=== PATIENT | male | born 1965 | race Caucasian/White ===

== ENCOUNTER 2018-04-30 19:24 | Emergency (ER) | payer MEDICARE, MEDICAID ==
--- NOTE | 2018-04-30 19:44 | Emergency Department Record ---
History of Present Illness - General Chief complaint: Extremity Problem Stated complaint: RT RING FINGER PAIN /BRUISED Time Seen by Provider: 04/30/18 19:38 Source: Patient Mode of Arrival: Wheelchair Limitations: No limitations - History of Present Illness Initial comments: 52 yo male presents to ED for evaluation following injury to the right index finger earlier this afternoon. Patient reports that his finger became pinched between his power wheelchair and a power sliding door. Patient reports mild blood under the nail and pain to the finger tip, denies other injury on examination. MD Complaint: Extremity pain Onset/Timin -: Hour(s) Location: Right Radiation: None Severity scale (1-10): 8 Quality: Crushing Consistency: Constant Improves with: Nothing Worsens with: Nothing Associated Symptoms: Denies other symptoms - Related Data Home Medications Medication Instructions Recorded Confirmed Last Taken No Home Med [NO HOME MEDS] 04/30/18 04/30/18 Unknown Allergies Allergy/AdvReac Type Severity Reaction Status Date / Time No Known Drug Allergies Allergy Verified 04/30/18 19:29 Travel Screening - Travel/Exposure Within Last 30 Days Have you traveled within the last 30 days?: No - Travel/Exposure Within Last Year Have you traveled outside the [place] in the last year?: No - Additonal Travel Details Have you been exposed to anyone with a communicable illness?: No - Travel Symptoms Symptom Screening: None Review of Systems Constitutional: Denies: Chills, Fever, Malaise, Night sweats Eyes: Denies: Eye discharge, Eye pain ENT: Denies: Congestion, Ear pain, Epistaxis Respiratory: Denies: Cough, Dyspnea Cardiovascular: Denies: Chest pain, Dyspnea on exertion Endocrine: Denies: Fatigue, Heat or cold intolerance Gastrointestinal: Denies: Abdominal pain, Nausea, Vomiting Genitourinary: Denies: Testicular pain, Testicular mass Musculoskeletal: Reports: Arthralgia. Denies: Back pain, Gout Skin: Reports: Bruising. Denies: Change in color Neurological: Denies: Abnormal gait, Confusion, Headache, Seizure Psychiatric: Denies: Anxiety Hematological/Lymphatic: Denies: Anemia, Blood Clots Past Medical History - SOCIAL HISTORY Smoking Status: Light tobacco smoker (<10/day) Alcohol Use: None Drug Use: None - RESPIRATORY Hx Respiratory Disorders: No - CARDIOVASCULAR Hx Cardio Disorders: Yes Hx Hypertension: Yes (borderline) Comment:: cholesteremia - NEURO Hx Neuro Disorders: Yes Comment:: closed head injury/left side paralysis - GI Hx GI Disorders: No - Hx Genitourinary Disorders: No - ENDOCRINE Hx Endocrine Disorders: No - MUSCULOSKELETAL Hx Musculoskeletal Disorders: No - PSYCH Hx Psych Problems: Yes Hx Anxiety: Yes Hx Depression: Yes - HEMATOLOGY/ONCOLOGY Hx Hematology/Oncology Disorders: No Family Medical History Any Significant Family History?: No Physical Exam - General General Appearance: Alert, Oriented x3, Cooperative, Mild distress Limitations: No limitations - Head Head exam: Atraumatic, Normocephalic, Normal inspection Head exam detail: negative: Abrasion, Contusion, Lee's sign, General tenderness, Hematoma, Laceration - Eye Eye exam: Normal appearance. negative: Conjunctival injection, Periorbital swelling, Periorbital tenderness, Scleral icterus - ENT Ear exam: negative: Auricular hematoma, Auricular trauma Nasal Exam: negative: Active bleeding, Discharge, Dried blood, Foreign body Mouth exam: negative: Drooling, Laceration, Muffled voice, Tongue elevation - Neck Neck exam: Normal inspection. negative: Meningismus, Tenderness - Respiratory Respiratory exam: Normal lung sounds bilaterally. negative: Rales, Respiratory distress, Rhonchi, Stridor - Cardiovascular Cardiovascular Exam: Regular rate, Normal rhythm, Normal heart sounds - GI/Abdominal GI/Abdominal exam: Soft. negative: Rebound, Rigid, Tenderness - Rectal Rectal exam: Deferred - exam: Deferred - Extremities Extremities exam: Tenderness, Other (TTP over the distal right ring finger, subungal hematoma comprises 25% of the nailbed area, FROM intact (but painful) with flexion/extension intact.). negative: Calf tenderness, Pedal edema - Back Back exam: Denies: CVA tenderness (R), CVA tenderness (L) - Neurological Neurological exam: Alert, Normal gait, Oriented X3 - Psychiatric Psychiatric exam: Normal affect, Normal mood - Skin Skin exam: Normal color. negative: Abrasion Type of lesion: negative: abrasion Course Vital Signs 04/30/18 19:30 Temperature 98.5 F Pulse Rate [ 78 Pulse Ox Probe] Respiratory 24 Rate Blood Pressure 142/97 [Left Arm] Pulse Ox 100 - Reevaluation(s) Reevaluation #1: 04/30/18 21:12 Right ring finger: No definite acute fracture identified Patient was updated on his radiology result, will place in finger splint for comfort. Patient otherwise appears stable for discharge at this time. Disposition Disposition: Discharge Clinical Impression: Finger contusion Qualifiers: Encounter type: initial encounter Finger: ring finger Damage to nail status: without damage Laterality: right Qualified Code(s): S60.041A - Contusion of right ring finger without damage to nail, initial encounter Disposition: Home, Self-Care Condition: (2) Stable Instructions: Subungual Hematoma (ED) Additional Instructions: Return to ED if your symptoms worsen or if you have any concerns. Ibuprofen as directed. Follow-up with your family doctor in 3-5 days as directed. Forms: Patient Portal Access Time of Disposition: 21:13 Quality - Quality Measures Quality Measures: N/A - Blood Pressure Screening Does Patient Have Any of the Following: No Blood Pressure Classification: Hypertensive Reading Systolic Measurement: 142 Diastolic Measurement: 97 Screening for High Blood Pressure: < First Hypertensive BP, F/U Documented > [ G8950] First Hypertensive Follow-up Interventions: Referral to alternative/primary care provider.
[2018-04-30] MEDS ORDERED: IBUPROFEN 600 MG TABLET PO ONE (20:34)
== END 2018-04-30 21:20 | disposition home or self-care (01) ==
LOC: ER 19:24
DX: S60.041A Contusion of right ring finger without damage to nail, initial encounter (principal); W23.1XXA Caught, crushed, jammed, or pinched between stationary objects, initial encounter; F17.210 Nicotine dependence, cigarettes, uncomplicated
CPT/HCPCS: 73140; 99283

== ENCOUNTER 2019-08-19 14:54 | Emergency (ER) | payer MEDICARE, MEDICAID ==
[2019-08-19] MEDS ORDERED: KETOROLAC 30 MG/ML VIAL IM ONE (15:09)
--- NOTE | 2019-08-19 15:26 | Emergency Department Record ---
History of Present Illness - General Chief complaint: Flank Pain Stated complaint: KIDNEY STONES Time Seen by Provider: 08/19/19 14:55 Source: Patient Mode of Arrival: Wheelchair Limitations: No limitations - History of Present Illness Initial comments: The patient is here due to L flank pain for at least a week. He denies any fall, trauma, injury, cough, vomiting, diarrhea or fever. The patient was here 2 weeks ago for similar issues and and a neg UA and a neg abd CT for hydro or ureter stone. He did have a 1 mm stone in the upper pole of the L kidney but no blockage. The patient also states he has had a hx of chronic flank pain off and on for some time. MD Complaint: Other Onset/Timin -: Week(s) Location: Left flank Radiation: None Severity: Mild Consistency: Constant Improves with: None Worsens with: None Reports: Denies other symptoms - Related Data Allergies Allergy/AdvReac Type Severity Reaction Status Date / Time No Known Drug Allergies Allergy Verified 08/19/19 15:05 Travel Screening - Travel/Exposure Within Last 30 Days Have you traveled within the last 30 days?: No Review of Systems Constitutional: Denies: Chills, Fever Eyes: Denies: Eye discharge ENT: Denies: Congestion Respiratory: Denies: Cough, Dyspnea Past Medical History - SOCIAL HISTORY Smoking Status: Light tobacco smoker (<10/day) Alcohol Use: None Drug Use: None - RESPIRATORY Hx Respiratory Disorders: No - CARDIOVASCULAR Hx Cardio Disorders: Yes Hx Hypertension: Yes (borderline) Comment:: cholesteremia - NEURO Hx Neuro Disorders: Yes Comment:: closed head injury/left side paralysis - GI Hx GI Disorders: No - Hx Genitourinary Disorders: No - ENDOCRINE Hx Endocrine Disorders: No - MUSCULOSKELETAL Hx Musculoskeletal Disorders: No - PSYCH Hx Psych Problems: Yes Hx Anxiety: Yes Hx Depression: Yes - HEMATOLOGY/ONCOLOGY Hx Hematology/Oncology Disorders: No Family Medical History Any Significant Family History?: No Physical Exam - General General Appearance: Alert, Oriented x3, Cooperative, No acute distress - Head Head exam: Atraumatic, Normocephalic, Normal inspection - Eye Eye exam: Normal appearance, PERRL, EOMI - Neck Neck exam: Normal inspection, Full ROM. negative: Tenderness - Respiratory Respiratory exam: Normal lung sounds bilaterally. negative: Respiratory distress - Cardiovascular Cardiovascular Exam: Regular rate, Normal rhythm, Normal heart sounds - GI/Abdominal GI/Abdominal exam: Soft, Normal bowel sounds. negative: Tenderness - Extremities Extremities exam: Normal inspection, Full ROM, Normal capillary refill. negative: Tenderness - Back Back exam: Reports: Paraspinal tenderness (There is mild L flank upper lumbar paraspinal tenderness that does reproduce the pain.). Denies: Vertebral tenderness Course Vital Signs 08/19/19 15:01 Pulse Rate 83 Respiratory 20 Rate Blood Pressure 157/78 Pulse Ox 99 - Reevaluation(s) Reevaluation #1: The patient is resting comfortably at this time. He is still complaining of L flank pain that is still very reproducible. I did discuss the neg CT with him and the small amount of blood in the urine. I did recommend F/U with his PCP later this week for recheck. 08/19/19 18:06 Medical Decision Making - Data Complexity MDM Data: Labs Ordered and/or Reviewed, X-Ray Ordered and/or Reviewed - Lab Data Result diagrams: 08/19/19 15:29 08/19/19 15:29 - Radiology Data Radiology results: Report reviewed (CT: Neg for any acute changes. Stable non- obstruction stone L kidney. ) Disposition Disposition: Discharge Clinical Impression: Left flank pain Disposition: Home, Self-Care Condition: (2) Stable Instructions: Flank Pain (ED) Additional Instructions: Please take Tylenol for pain and please see your family doctor later this week for recheck. Return to the ER for any worsening symptoms. Forms: Patient Portal Access Time of Disposition: 18:05 Quality - Quality Measures Quality Measures: N/A - Blood Pressure Screening View Details: Yes Does Patient Have Any of the Following: No Blood Pressure Classification: Hypertensive Reading Systolic Measurement: 157 Diastolic Measurement: 78 Screening for High Blood Pressure: < First Hypertensive BP, F/U Documented > [G8950] First Hypertensive Follow-up Interventions: Referral to alternative/primary care provider.
[2019-08-19 15:36] LABS: BASO % 0.2 % (0-6); EOS % 1.7 % (0-6); GRAN % 54.2 % (47-80); HEMATOCRIT 46.4 % (42.0-52.0); HEMOGLOBIN 16.1 gm/dl (14.0-18.0); LYMPH % 31.6 % (16-45); MEAN CELL VOLUME 84.1 fl (81-97); MEAN CORPUSCULAR HEMOGLOBIN 29.2 pg (27-33); MEAN CORPUSCULAR HGB CONC 34.7 g/dl (32-36); MEAN PLATELET VOLUME 9.4 fl (7.4-10.4); MONO % 12.3 % (0-9); PLATELET COUNT 192 K/uL (130-400); RED BLOOD COUNT 5.52 M/uL (4.40-5.70); RED CELL DISTRIBUTION WIDTH 12.5 % (11.5-14.5); WHITE BLOOD COUNT W/O DIFF 4.6 K/uL (4.2-12.2)
[2019-08-19 15:49] LABS: BLOOD UREA NITROGEN 30 mg/dL (6-20); CREATININE 1.1 mg/dL (0.7-1.2); EST GLOMERULAR FILTRATION RATE > 60 mL/min
[2019-08-19 15:52] LABS: GLUCOSE,RANDOM 99 mg/dL (74-109)
[2019-08-19 16:14] LABS: URINE APPEARANCE CLEAR; URINE BILIRUBIN NEGATIVE (NEGATIVE); URINE BLOOD MODERATE (NEGATIVE); URINE COLOR YELLOW; URINE GLUCOSE (UA) NEGATIVE (NEGATIVE); URINE KETONE NEGATIVE (NEGATIVE); URINE LEUKOCYTE ESTERASE NEGATIVE (NEGATIVE); URINE NITRITE NEGATIVE (NEGATIVE); URINE PROTEIN NEGATIVE (NEGATIVE); URINE UROBILINOGEN 0.2 E.U./dL (0.20 - 1.00)
[2019-08-19 16:23] LABS: URINE EPITHELIAL CELLS NONE SEEN (FEW); URINE WBC NONE SEEN (0-2/hpf)
--- NOTE | 2019-08-19 17:26 | CT SCAN REPORT ---
EXAMINATION: CT Abdomen and Pelvis without IV Contrast EXAM DATE: 08/19/2019 5:20 PM TECHNIQUE: Standard protocol CT imaging of the abdomen and pelvis was performed without intravenous c ontrast. INDICATION: L flank pain COMPARISON: CT abdomen and pelvis August 01, 2019 ENCOUNTER: Not applicable CT ABDOMEN AND PELVIS FINDINGS: Lung Bases: Included extent of the lung bases are clear. Hepatobiliary: The liver has a normal size with a smooth surface. Gallbladder is present. Pancreas: The pancreas is normal. Spleen: The spleen is not enlarged. Adrenals: The adrenal glands are normal. Kidneys, Ureters, & Bladder: Both kidneys have a normal size and morphology. There is no hydronephro sis. Redemonstration tiny punctate nonobstructing calculus upper pole left kidney. Ureter showing nor mal course and caliber bilaterally and the urinary bladder is unremarkable. Gastrointestinal: The stomach and small bowel are normal with no obstruction or inflammation. Appendi x is normal. The large bowel is within normal limits. Reproductive Organs: Unremarkable Lymphatic System: There is no adenopathy within the abdomen or pelvis. Vasculature: Normal caliber abdominal aorta. Atherosclerotic change is present. Peritoneum: No free fluid, free air, or inflammation Abdominal wall & Musculoskeletal: No suspicious bone lesions. There is asymmetric atrophy right marty guido musculature. Assessment of the solid organs, soft tissues, and vascular structures is overall limited on noncontra st imaging, IMPRESSION: Stable nonobstructing left renal calculus. No hydronephrosis bilaterally. No obstructing renal or ure teral calculi. Nonobstructed bowel with normal appendix. Additional findings as detailed above Dictated by: Sergio Honeycutt MD on 08/19/2019 5:13 PM. .
[2019-08-19] MEDS ORDERED: ACETAMINOPHEN 325 MG TAB PO ONE (18:04)
== END 2019-08-19 18:12 | disposition home or self-care (01) ==
LOC: ER 14:54
DX: M54.5 Low back pain (principal); R31.29 Other microscopic hematuria; I10 Essential (primary) hypertension; F17.210 Nicotine dependence, cigarettes, uncomplicated
CPT/HCPCS: 99284 ×2; 96372; 85025; 80048; 81001; 74176; J1885